=== PATIENT | male | born 1945 | race Caucasian/White ===

== ENCOUNTER 2016-04-12 13:26 | Outpatient (CLI) | payer OTHER | END 2016-04-12 13:27 | disposition home or self-care (01) | DX: I25.10 Atherosclerotic heart disease of native coronary artery without angina pectoris (principal); E78.5 Hyperlipidemia, unspecified; I48.0 Paroxysmal atrial fibrillation ==

== ENCOUNTER 2016-05-31 15:15 | Outpatient (CLI) | payer OTHER | END 2016-05-31 15:16 | disposition home or self-care (01) | DX: M54.2 Cervicalgia (principal) ==

== ENCOUNTER 2016-06-05 13:28 | Outpatient (CLI) | payer OTHER | END 2016-06-05 13:29 | disposition home or self-care (01) | DX: M50.31 Other cervical disc degeneration, high cervical region (principal); M47.892 Other spondylosis, cervical region ==